=== PATIENT | male | born 2000 | race Caucasian/White ===

== ENCOUNTER 2021-10-18 17:49 | Emergency (ER) | payer OTHER ==
[~2021-10-18] VITALS: Ht 180.3 cm; Wt 73.5 kg
[2021-10-18 19:04] LABS: BILIRUBIN,URINE NEGATIVE (NEGATIVE); COLOR,URINE YELLOW (YELLOW); LEUKOCYTE ESTERASE ,URINE NEGATIVE (NEGATIVE); NITRITE, URINE NEGATIVE (NEGATIVE); PH,URINE 5.5 (5.0-8.0); PROTEIN,URINE NEGATIVE (NEGATIVE); UGLUCOSE NEGATIVE (NEGATIVE); UROBILINOGEN,URINE 0.2 EU/dL (0.2)
[2021-10-18 19:28] LABS: ALANINE AMINOTRANSFERASE 21 U/L (12-78); ALBUMIN 3.5 g/dL (3.4-5.0); ALCOHOL, BLOOD < 3 mg/dL (0-0); ALKALINE PHOSPHATASE 66 U/L (46-116); ASPARTATE AMINOTRANSFERASE 14 U/L (15-37); BILIRUBIN,DIRECT 0.2 mg/dL (0.0-0.2); BILIRUBIN,TOTAL 0.4 mg/dL (0.2-1.0); CALCIUM, SERUM 8.8 mg/dL (8.5-10.1); CARBON DIOXIDE 31 mmol/L (21-32); CHLORIDE 105 mmol/L (98-107); CREATININE 0.9 mg/dL (0.6-1.3); GLUCOSE 78 mg/dL (74-106); POTASSIUM 4.1 mmol/L (3.5-5.1); SODIUM SERUM 139 mmol/L (136-145); TOTAL PROTEIN, SERUM 7.6 g/dL (6.4-8.2); UREA NITROGEN, BLOOD 11 mg/dL (7-18)
[2021-10-18 19:30] LABS: ACETAMINOPHEN < 0 ug/ml (10-30)
--- NOTE | 2021-10-18 19:43 | NUR ---
PER TRIAGE, PT FEELING SUICIDAL W/ PLAN TO "CUT MYSELF" WANTS VOL PSYCH ADMIT TO [facility]. PLACED IN BED 15 ON MONITOR AND PULSE OX. WILL CONTINUE TO MONITOR.
[2021-10-18 19:53] LABS: BASOPHILS # (AUTO) 0.1 K/uL (0.0-0.2); EOSINOPHILS % (AUTO) 3.5 % (0.0-6.0); HEMATOCRIT 37 % (39-51); LYMPHOCYTES # (AUTO) 2.3 K/uL (0.8-4.8); LYMPHOCYTES % (AUTO) 37.7 % (20.0-44.0); MEAN CORPUSCULAR HGB CONC 33 g/dl (31.0-36.0); MEAN CORPUSCULAR VOLUME 86 fL (80-96); MONOCYTES # (AUTO) 0.6 K/uL (0.1-1.30); MONOCYTES % (AUTO) 9.1 % (2.0-12.0); NEUTROPHILS % (AUTO) 48.7 % (43.0-81.0); PLATELET COUNT (AUTO) 512 K/uL (150-450); RED BLOOD CELL COUNT(AUTO) 4.26 MIL/uL (4.5-6.0); WHITE BLOOD COUNT (AUTO) 6.1 K/uL (4.3-11.0)
--- NOTE | 2021-10-18 20:10 | NUR ---
COVID SWAB DONE AND SENT TO LAB
--- NOTE | 2021-10-18 22:03 | NUR ---
FAXED CLINICALS TO [facility]
--- NOTE | 2021-10-19 01:52 | NUR ---
[facility] ACCEPTED BY DR. GOODWIN UNDER THE CARE OF DR WATERS NUMBER FOR REPORT: [phone] [id number] PER LEIDY GALINDO
--- NOTE | 2021-10-19 02:25 | NUR ---
[facility] ETA: 30MIN
--- NOTE | 2021-10-19 03:21 | NUR ---
report given to Didier at [facility]. pt will go to rm [id number]. [facility] at bed side to grain picker the pt
--- NOTE | 2021-10-19 03:30 | NUR ---
PATIENT TRANSPORTED TO [facility] IN STABLE CONDITION VIA AMBULANCE.
--- NOTE | 2021-10-19 04:06 | NUR ---
Wallace solis in [facility] - 10/19/21 at 0441 by MATTIE PATIENT TRANSPORTED TO [facility] IN STABLE CONDITION VIA AMBULANCE.
[2021-10-19 04:07] VITALS: BP 129/70
== END 2021-10-19 03:30 ==
LOC: ER 17:54
DX: R45.851 Suicidal ideations (principal); R44.0 Auditory hallucinations; Z20.822 Contact with and (suspected) exposure to COVID-19; F17.200 Nicotine dependence, unspecified, uncomplicated
CPT/HCPCS: 36415; 80048; 80076; 80143; 80307; 80320; 81003; 85025; 87426; 99285; C9803; G0480

== ENCOUNTER 2022-04-16 05:16 | Emergency (ER) | payer OTHER ==
[~2022-04-16] VITALS: Ht 182.9 cm; Wt 75.7 kg
--- NOTE | 2022-04-16 05:31 | NUR ---
PATIENT [id number] C/O +SI, PLAN TO OD, LOOKING FOR VOLUNTARY PSYCH ADMIT. PATIENT TAKEN TO ER BED 18. PATIENT VSS, NO SOB NOTED, RR EVEN AND UNLABORED. NO ACUTE DISTRESS NOTED. ER EMT, REFUELER ER SECURITY AT BEDSIDE FOR WANDING. PATIENT BELONGINGS TAKEN AND PLACED IN LOCKER. PATIENT PLACED IN HOSPITAL. WILL CONTINUE TO MONITOR.
--- NOTE | 2022-04-16 05:46 | NUR ---
URINE COLLECTED SENT TO LAB
--- NOTE | 2022-04-16 05:46 | NUR ---
COVID SWAB COLLECTED SENT TO LAB
[2022-04-16 06:16] LABS: BILIRUBIN,URINE NEGATIVE (NEGATIVE); COLOR,URINE YELLOW (YELLOW); LEUKOCYTE ESTERASE ,URINE NEGATIVE (NEGATIVE); NITRITE, URINE NEGATIVE (NEGATIVE); PROTEIN,URINE NEGATIVE (NEGATIVE); UGLUCOSE NEGATIVE (NEGATIVE); UROBILINOGEN,URINE 0.2 EU/dL (0.2)
[2022-04-16 06:53] LABS: BASOPHILS # (AUTO) 0.1 K/uL (0.0-0.2); BASOPHILS % (AUTO) 0.9 % (0.0-2.0); EOSINOPHILS % (AUTO) 1.8 % (0.0-6.0); HEMATOCRIT 38 % (39-51); HEMOGLOBIN 12.7 g/dL (13.5-17.5); LYMPHOCYTES # (AUTO) 2.6 K/uL (0.8-4.8); LYMPHOCYTES % (AUTO) 30.2 % (20.0-44.0); MEAN CORPUSCULAR HGB CONC 33 g/dl (31.0-36.0); MEAN CORPUSCULAR VOLUME 85 fL (80-96); MONOCYTES # (AUTO) 1.2 K/uL (0.1-1.30); MONOCYTES % (AUTO) 14.3 % (2.0-12.0); NEUTROPHILS # (AUTO) 4.6 K/uL (1.8-8.9); NEUTROPHILS % (AUTO) 52.8 % (43.0-81.0); PLATELET COUNT (AUTO) 309 K/uL (150-450); RED BLOOD CELL COUNT(AUTO) 4.48 MIL/uL (4.5-6.0); WHITE BLOOD COUNT (AUTO) 8.7 K/uL (4.3-11.0)
[2022-04-16 07:02] LABS: CALCIUM, SERUM 9.4 mg/dL (8.5-10.1); CREATININE 0.9 mg/dL (0.6-1.3); POTASSIUM 3.6 mmol/L (3.5-5.1)
[2022-04-16 07:09] LABS: ALBUMIN 4.2 g/dL (3.4-5.0); BILIRUBIN,DIRECT 0.3 mg/dL (0.0-0.2); BILIRUBIN,TOTAL 1.4 mg/dL (0.2-1.0); TOTAL PROTEIN, SERUM 8.3 g/dL (6.4-8.2)
--- NOTE | 2022-04-16 09:30 | NUR ---
FAXED CLINICALS TO [facility].
[2022-04-16 10:25] VITALS: BP 128/77
--- NOTE | 2022-04-16 10:30 | NUR ---
patient picked up by [facility] in no distress.
== END 2022-04-16 10:30 ==
LOC: ER 05:19
DX: R45.851 Suicidal ideations (principal); F19.10 Other psychoactive substance abuse, uncomplicated; Z20.822 Contact with and (suspected) exposure to COVID-19
CPT/HCPCS: 99285; 85025; 80048; 80076; 81003; 36415; 87426; 80143; 80320; 80307; C9803; G0480

== ENCOUNTER 2022-09-01 00:03 | Emergency (ER) | payer MEDICAID, OTHER ==
[~2022-09-01] VITALS: Ht 180.3 cm; Wt 77.1 kg
--- NOTE | 2022-09-01 02:38 | NUR ---
HITESH FROM STREET C/O SI WITH NO PLAN. REQUESTING VOLUNTARY ADMIT TO [facility]. PT A/OX4. TOLERATING R/A WELL WITH NO RESP DISTRESS. AMB WITH STEADY GAIT. CHANGED INTO GOWN, BELONGINGS COLLECTED, AND KEPT IN STORAGE. PT WANDED BY SECURITY. SAFETY MEASURES IN PLACE.
--- NOTE | 2022-09-01 02:45 | NUR ---
URINE AND COVID ANTIGEN SWAB COLLECTED AND SENT TO LAB
[2022-09-01 02:58] LABS: BASOPHILS % (AUTO) 0.6 % (0.0-2.0); HEMATOCRIT 38 % (39-51); LYMPHOCYTES # (AUTO) 3.1 K/uL (0.8-4.8); LYMPHOCYTES % (AUTO) 43.1 % (20.0-44.0); MEAN CORPUSCULAR HGB CONC 32 g/dl (31.0-36.0); MEAN CORPUSCULAR VOLUME 88 fL (80-96); MONOCYTES # (AUTO) 0.7 K/uL (0.1-1.30); MONOCYTES % (AUTO) 9.5 % (2.0-12.0); NEUTROPHILS # (AUTO) 3.1 K/uL (1.8-8.9); NEUTROPHILS % (AUTO) 43.8 % (43.0-81.0); PLATELET COUNT (AUTO) 378 K/uL (150-450); RED BLOOD CELL COUNT(AUTO) 4.29 MIL/uL (4.5-6.0); WHITE BLOOD COUNT (AUTO) 7.1 K/uL (4.3-11.0)
--- NOTE | 2022-09-01 03:33 | NUR ---
OFFERED PT FOOD; TOLERATING WELL
[2022-09-01 03:53] LABS: CALCIUM, SERUM 9.1 mg/dL (8.5-10.1); CARBON DIOXIDE 26 mmol/L (21-32); CHLORIDE 102 mmol/L (98-107); CREATININE 0.8 mg/dL (0.6-1.3); GLUCOSE 99 mg/dL (74-106); POTASSIUM 3.7 mmol/L (3.5-5.1); SODIUM SERUM 133 mmol/L (136-145); UREA NITROGEN, BLOOD 9 mg/dL (7-18)
[2022-09-01 04:08] LABS: ALANINE AMINOTRANSFERASE 19 U/L (12-78); ALBUMIN 3.3 g/dL (3.4-5.0); ALCOHOL, BLOOD < 3 mg/dL (0-0); ALKALINE PHOSPHATASE 77 U/L (46-116); ASPARTATE AMINOTRANSFERASE 16 U/L (15-37); BILIRUBIN,DIRECT 0.1 mg/dL (0.0-0.2); BILIRUBIN,TOTAL 0.4 mg/dL (0.2-1.0); TOTAL PROTEIN, SERUM 6.9 g/dL (6.4-8.2)
[2022-09-01 04:17] LABS: ACETAMINOPHEN < 3 ug/ml (10-30)
[2022-09-01 04:42] LABS: BILIRUBIN,URINE NEGATIVE (NEGATIVE); COLOR,URINE YELLOW (YELLOW); LEUKOCYTE ESTERASE ,URINE NEGATIVE (NEGATIVE); NITRITE, URINE NEGATIVE (NEGATIVE); PROTEIN,URINE NEGATIVE (NEGATIVE); UGLUCOSE NEGATIVE (NEGATIVE); UROBILINOGEN,URINE 0.2 EU/dL (0.2)
--- NOTE | 2022-09-01 05:27 | NUR ---
FACESHEET AND CLINICALS FAXED TO [facility].
--- NOTE | 2022-09-01 06:59 | NUR ---
ACCEPTING MD DR WILLIS REPORT UNIT 1 *THEY WILL CALL BACK FOR TRANSPORTATION AFTER 8AM
[2022-09-01 08:00] VITALS: BP 117/87
--- NOTE | 2022-09-01 08:18 | NUR ---
REPORT GIVEN TO ADÁN FOR PITER
--- NOTE | 2022-09-01 08:25 | NUR ---
CALLED [facility] FOR TRANSPORTATION UPDATE, AWAITING CALL BACK
--- NOTE | 2022-09-01 09:46 | NUR ---
PICKED UP BY TRANSPORT IN STABLE CONDITION
== END 2022-09-01 09:49 ==
LOC: ER 00:05
DX: R45.851 Suicidal ideations (principal); F19.10 Other psychoactive substance abuse, uncomplicated; Z20.822 Contact with and (suspected) exposure to COVID-19; Z59.00 Homelessness unspecified
CPT/HCPCS: 99285; 85025; 80048; 80076; 81003; 36415; 87426; 80143; 80320; 80307; C9803; G0480